=== PATIENT | female | born 1945 | race Caucasian/White ===

== ENCOUNTER 2019-12-14 09:43 | Outpatient (CLI) | payer MEDICARE, OTHER, SELFPAY ==
--- NOTE | 2019-12-14 09:49 | MM_ITS ---
WS: [id number] Bilateral diagnostic digital mammogram, 12/14/2019 Clinical Data: HX OF BREAST CA Comparison: 11/02/2018, 10/14/2017, 10/07/2016, 10/01/2015, 09/24/2014, 09/20/2013, 09/18/2012, 08/10/2011, 07/13, 07/30/2009, 07/01/2008, 07/13/2007, 07/03/2007, 06/27/2006, 07/01/2005. Findings: The breasts are heterogeneously dense. No spiculated masses or clustered calcifications are seen. The re are no secondary signs of carcinoma. There are small vessel calcifications in the left breast. MM/[place] [id number] Impression: 1. Negative bilateral mammograms unchanged. 2. Recommendation annual mammograms. BIRADS: 1-Negative FOLLOW UP: 1 Year Follow-up The CAD lap checker was used.
== END 2019-12-14 09:44 | disposition home or self-care (01) ==
PROVIDERS: PCP Electrodiagnostic Medicine; Visit Provider Electrodiagnostic Medicine
DX: Z85.3 Personal history of malignant neoplasm of breast (principal)
CPT/HCPCS: 77066

== ENCOUNTER → 2020-12-01 12:55 | Outpatient (BNVA) | payer MEDICARE, SELFPAY | PROVIDERS: PCP Electrodiagnostic Medicine; Visit Provider Nurse Practitioner Family | DX: N30.90 Cystitis, unspecified without hematuria (principal) | CPT/HCPCS: 81003 ==

== ENCOUNTER 2021-03-16 09:41 | Outpatient (CLI) | payer MEDICARE, OTHER, SELFPAY ==
--- NOTE | 2021-03-16 09:49 | MM_ITS ---
WS: [id number] BILATERAL DIGITAL DIAGNOSTIC MAMMOGRAM MAMMOGRAPHY WITH CAD CLINICAL INFORMATION: HX OF BREAST CA\ COMPARISON: December 14, 2019 TECHNIQUE: Bilateral CC, MLO, and ML views. FINDINGS: The breasts are composed of heterogeneous fibroglandular density, which can limit the detection of sm all underlying mass lesions. Vascular calcification. Dystrophic calcifications left breast are unchan ged. No suspicious focal mass, asymmetry, calcifications, or architectural distortion. No evidence of hattie gnancy. MM/[place] [id number] IMPRESSION: BI-RADS: 2-Benign FOLLOW UP: 1 Year Follow-up Recommend return to annual diagnostic mammography.
== END 2021-03-16 09:42 | disposition home or self-care (01) ==
LOC: RADSHAW 09:46
PROVIDERS: PCP Electrodiagnostic Medicine; Visit Provider Electrodiagnostic Medicine
DX: Z85.3 Personal history of malignant neoplasm of breast (principal)
CPT/HCPCS: 77066

== ENCOUNTER 2021-07-24 08:27 | Outpatient (RCR) | payer MEDICARE, OTHER, SELFPAY | END 2021-08-11 23:59 | disposition home or self-care (01) | LOC: SPT 08:27 | PROVIDERS: PCP Electrodiagnostic Medicine; Referring Provider Electrodiagnostic Medicine; Visit Provider Electrodiagnostic Medicine | DX: M54.9 Dorsalgia, unspecified (principal) | CPT/HCPCS: 97110; 97161 ==

== ENCOUNTER 2021-08-12 06:00 | Outpatient (RCR) | payer MEDICARE, OTHER, SELFPAY | END 2021-09-10 23:59 | disposition home or self-care (01) | LOC: SPT 06:00 | PROVIDERS: PCP Electrodiagnostic Medicine; Referring Provider Electrodiagnostic Medicine; Visit Provider Electrodiagnostic Medicine | DX: M54.6 Pain in thoracic spine (principal) | CPT/HCPCS: 97110 ==

== ENCOUNTER → 2021-11-24 10:27 | Outpatient (BNVA) | payer MEDICARE, OTHER, SELFPAY | PROVIDERS: PCP Electrodiagnostic Medicine; Visit Provider Urology | DX: N39.0 Urinary tract infection, site not specified (principal) | CPT/HCPCS: 99213 ==

== ENCOUNTER → 2021-12-07 10:45 | Outpatient (BNVA) | payer MEDICARE, OTHER, SELFPAY | PROVIDERS: PCP Electrodiagnostic Medicine; Visit Provider Urology | DX: N39.0 Urinary tract infection, site not specified (principal) | CPT/HCPCS: 81003 ==

== ENCOUNTER 2022-03-30 08:16 | Outpatient (CLI) | payer MEDICARE, SELFPAY ==
--- NOTE | 2022-03-30 08:33 | MM_ITS ---
WS: [id number] BILATERAL SCREENING DIGITAL TOMOSYNTHESIS MAMMOGRAM WITH CAD HISTORY: HX OF BREAST CA COMPARISON: 03/16/2021, 12/14/2019 and 10/14/2017 Bilateral CC and MLO views with tomosynthesis and synthetic mammography submitted. Computer aided det ection analyzed. Breast composition: The breasts are heterogeneously dense, which may obscure small masses. No suspici ous masses, microcalcifications or architectural distortion. Benign coarse calcification 12:00 LEFT b reast and vascular calcifications. MM/[place] [id number] IMPRESSION: BI-RADS: 2-Benign FOLLOW UP: 1 Year Follow-up
== END 2022-03-30 08:17 | disposition home or self-care (01) ==
PROVIDERS: PCP Electrodiagnostic Medicine; Visit Provider Electrodiagnostic Medicine
DX: Z85.3 Personal history of malignant neoplasm of breast (principal)
CPT/HCPCS: 77062; G0279

== ENCOUNTER 2023-04-20 10:07 | Outpatient (CLI) | payer MEDICARE, SELFPAY ==
--- NOTE | 2023-04-20 10:15 | MM_ITS ---
WS: [id number] DIAGNOSTIC BILATERAL DIGITAL BREAST TOMOSYNTHESIS MAMMOGRAPHY WITH CAD HISTORY: HISTORY OF BREAST CANCER COMPARISON: 03/30/2022, 03/16/2021 and 12/14/2019 TECHNIQUE: Bilateral craniocaudad, mediolateral oblique, and mediolateral views are submitted with to mosynthraya and SM. Computer aided detection utilized. Breast composition: The breasts are heterogeneously dense, which may obscure small masses. Stable are a of architectural distortion in the posterior lateral and slightly superior LEFT breast. There is an associated dystrophic calcification. There is no associated mass. This does appear to be at the site of the prior lumpectomy. IMPRESSION: MM/[place] [id number] BI-RADS: 2-Benign FOLLOW UP: 1 Year Follow-up
== END 2023-04-20 10:08 | disposition home or self-care (01) ==
LOC: RAD 10:09
PROVIDERS: PCP Electrodiagnostic Medicine; Visit Provider Electrodiagnostic Medicine
DX: Z85.3 Personal history of malignant neoplasm of breast (principal); R92.333 Mammographic heterogeneous density, bilateral breasts; N64.89 Other specified disorders of breast; R92.1 Mammographic calcification found on diagnostic imaging of breast
CPT/HCPCS: 77062; G0279

== ENCOUNTER → 2023-08-10 11:30 | Outpatient (BNVA) | payer MEDICARE, SELFPAY | PROVIDERS: PCP Electrodiagnostic Medicine; Referring Provider Electrodiagnostic Medicine; Visit Provider Internal Medicine | DX: E05.90 Thyrotoxicosis, unspecified without thyrotoxic crisis or storm (principal); E04.2 Nontoxic multinodular goiter | CPT/HCPCS: 99204 ==

== ENCOUNTER 2024-05-08 10:50 | Outpatient (CLI) | payer MEDICARE, SELFPAY ==
--- NOTE | 2024-05-08 11:00 | MM_ITS ---
WS: [id number] DIAGNOSTIC BILATERAL DIGITAL BREAST TOMOSYNTHESIS MAMMOGRAPHY WITH CAD HISTORY: SCREENING COMPARISON: 04/20/2023, 03/30/2022, 11/02/2018 TECHNIQUE: Bilateral craniocaudad, mediolateral oblique, and mediolateral views are submitted with tomosynthesis and SM. Computer aided detection utilized. Breast composition: The breasts are heterogeneously dense, which may obscure small masses. Bilateral vascular calcifications. Asymmetric soft tissue is similar to prior studies. Dystrophic calcification upper outer quadrant of the LEFT breast at the site of prior biopsy and lumpectomy. No new mass or suspicious grouping of calcifications. MM/MM diag BI tomosynthesis [id number] IMPRESSION: BI-RADS: 2 - Benign FOLLOW UP: 1 Year Follow-up
== END 2024-05-08 10:51 | disposition home or self-care (01) ==
LOC: RAD 10:52
PROVIDERS: PCP Electrodiagnostic Medicine; Visit Provider Electrodiagnostic Medicine
DX: Z85.3 Personal history of malignant neoplasm of breast (principal); R92.333 Mammographic heterogeneous density, bilateral breasts; R92.1 Mammographic calcification found on diagnostic imaging of breast; N64.89 Other specified disorders of breast
CPT/HCPCS: 77062; G0279

== ENCOUNTER 2024-11-05 09:03 | Outpatient (CLI) | payer MEDICARE, SELFPAY ==
--- NOTE | 2024-11-05 09:14 | MM_ITS ---
WS: [id number] DIAGNOSTIC RIGHT DIGITAL BREAST TOMOSYNTHESIS MAMMOGRAPHY WITH CAD RIGHT breast ultrasound, limited HISTORY: MASS OF R BREAST COMPARISON: 05/08/2024, 04/20/2023, 03/30/2022, 03/16/2021 Breast composition: The breasts are heterogeneously dense, which may obscure small masses. Palpable marker is placed near the 6:00 axis of the RIGHT breast. There is an area of slight increased density but there is no distortion. No discrete margins are identified. Mild asymmetry measuring approximately 2.1 x 1.9 x 1.9 cm which will be further evaluated by ultrasound. New finding since the prior exam. Breasts are dense which may obscure masses. No suspicious grouping of calcifications. RIGHT breast ultrasound, limited. Hypoechoic, irregular, angular mass with shadowing corresponds to the palpable abnormality. This mass is at 6:00, 1 cm from the nipple and measures 1.4 x 1.5 x 1.9 cm. Mild increased vascularity. MM/MM diag RT tomosynthesis [id number] IMPRESSION: BI-RADS: 5 - Highly suggestive of Malignancy FOLLOW UP: Biopsy Recommended Ultrasound-guided biopsy recommended RIGHT breast mass.
== END 2024-11-05 09:04 | disposition home or self-care (01) ==
PROVIDERS: PCP Electrodiagnostic Medicine; Visit Provider Electrodiagnostic Medicine
DX: N63.15 Unspecified lump in the right breast, overlapping quadrants (principal); R92.333 Mammographic heterogeneous density, bilateral breasts
CPT/HCPCS: 76642; 77061; G0279

== ENCOUNTER 2024-11-14 10:26 | Outpatient (CLI) | payer MEDICARE, SELFPAY ==
--- NOTE | 2024-11-14 10:35 | US_ITS ---
WS: [id number] ULTRASOUND-GUIDED RIGHT BREAST BIOPSY CLINICAL INFORMATION: ABNORMAL MAMMOGRAM FINDINGS: The procedure including risks, benefits, and complications were discussed with the patient who agreed to proceed. Using sterile technique patient was prepped and draped in the usual sterile fashion. After 1% lidocaine utilizing real-time ultrasound guidance 5 14-gauge cores were obtained of the RIGHT breast lesion at the 6 o'clock position 1 cm from the nipple. Subsequently a titanium clip was placed in the biopsy cavity. No immediate complications. US/[place] [id number] IMPRESSION: 1. Uncomplicated ultrasound-guided RIGHT breast biopsy. 2. The pathology demonstrates invasive mammary carcinoma of no special type du ctal is favored. High nuclear grade. 3. Breast prognostic profile will be reported separately by pathology. 4. Recommend breast surgery consultation. DENSITY: The breasts are heterogeneously dense, which may obscure small masses. BI-RADS: 6 - Known Biopsy - Proven Malignancy FOLLOW UP: Surgical Biopsy Recommended RECOMMEND BREAST SURGERY CONSULTATION
[2024-11-20 13:27] LABS: Breast Profile ER,PR,HER2,Ki-6 See Report
[2024-11-21 13:23] LABS: PD-L1 (Clone 22C3) by IHC BBPL See Report
== END 2024-11-14 10:27 | disposition home or self-care (01) ==
LOC: RAD 10:27
PROVIDERS: PCP Electrodiagnostic Medicine; Visit Provider Electrodiagnostic Medicine
DX: C50.811 Malignant neoplasm of overlapping sites of right female breast (principal)
CPT/HCPCS: 19083; 88305; 88341; 88342; 88361; 88374

== ENCOUNTER → 2024-11-19 13:53 | Outpatient (BNVA) | payer MEDICARE, SELFPAY | PROVIDERS: PCP Electrodiagnostic Medicine; Visit Provider Student in an Organized Health Care Education/Training Program | DX: C50.911 Malignant neoplasm of unspecified site of right female breast (principal); R03.0 Elevated blood-pressure reading, without diagnosis of hypertension | CPT/HCPCS: 99204 ==

== ENCOUNTER → 2024-12-03 14:45 | Outpatient (BNVA) | payer MEDICARE, SELFPAY | PROVIDERS: PCP Electrodiagnostic Medicine; Visit Provider Student in an Organized Health Care Education/Training Program | DX: Z85.3 Personal history of malignant neoplasm of breast (principal) | CPT/HCPCS: 99214 ==

== ENCOUNTER 2024-12-05 08:45 | Day surgery (SDC) | payer MEDICARE, SELFPAY ==
[2024-12-05] VITALS (9 sets, daily range): BP systolic 88–117; BP diastolic 43–75; PULSE 54–66; RESP 10–24; TEMP 35.7–36.3; O2SAT 94–100; BMI 21.4
--- NOTE | 2024-12-05 08:52 | SC_ITS ---
WS: [id number] Exam: C-arm FL for CVA [id number] Date/Time of Exam: 12/05/2024 8:52 AM Reason For Exam: port placement DLP: Single AP C-arm image of the upper chest is submitted. The image depicts a LEFT subclavian port placement with the tip of the port ending in the lower one third of the SVC. No other significant finding on this limited study.
--- NOTE | 2024-12-05 09:07 | W.PM.OPSUD ---
Surgery/Procedure H&P Update DATE OF PROCEDURE: December 05, 2024 DATE H&P PERFORMED: 12/03/24 H&P UPDATE INFORMATION: I have reviewed H&P completed within last 30 days, I have examined patient prior to procedure, No changes to prior documentation and Risks and benefits of the procedure reviewed PLANNED PROCEDURE: Operation Date: 12/05/24 10:50 Proposed Procedures p Port a Cath Insertion [id number] C50.919(Not Applicable) - Son Gerard MD
--- NOTE | 2024-12-05 09:23 | ANES.PREANE2 ---
Pre-Anesthetic Assessment Height/Weight: Height 1.68 m Temp Pulse Resp BP Pulse Ox O2 Del Method 96.8 F L 66 18 116/75 98 Room Air 12/05/24 09:13 12/05/24 09:13 12/05/24 09:13 12/05/24 09:13 12/05/24 09:13 12/05/24 09:13 Operation Date: 12/05/24 10:50 Proposed Procedures p Port a Cath Insertion [id number] C50.919(Not Applicable) - Son Gerard MD Familial anesthetic complications: None Was Beta Ty taken within 24 hours: N/A Was Clonidine taken within 24 hours: N/A Last intake: Intake Last Liquid Date 12/04/24 Last Liquid Time 22:00 Last Solid Date 12/04/24 Last Solid Time 22:00 Social No alcohol and No tobacco Exam alert, oriented x 3, clear to auscultation bilaterally and regular rate & rhythm Airway Mallampati: Class I GI Gastroesophageal Reflux Disease Metabolic Thyroid Disease Anesthetic Plan ASA status: 2 Anesthesia: MAC Risk of > 500 ml blood loss (7ml/kg in children): No Medications/Allergies Home Medications ?Medication ?Instructions ?Recorded ?Confirmed ?Last Taken ?Type levetiracetam 250 mg tablet 250 mg PO BEDTIME 12/01/20 12/04/24 12/04/24 History ([place]) methimazole 5 mg tablet 2.5 mg PO DAILY 12/01/20 12/04/24 12/04/24 History cholecalciferol (vitamin D3) 50 50 mcg PO DAILY 11/19/24 12/04/24 12/04/24 History mcg (2,000 unit) capsule famotidine 10 mg tablet (Pepcid AC) 10 mg PO DAILY 11/19/24 12/04/24 12/04/24 History magnesium 250 mg tablet 250 mg PO DAILY 11/19/24 12/04/24 12/04/24 History vit C 250 mg-vit E 90 mg-zinc 40 1 tab PO BID 11/19/24 12/04/24 12/04/24 History mg-copper 1 [id number] capsule ([facility] AREDS-2) vitamin B complex 1 cap PO DAILY 11/19/24 12/04/24 12/04/24 History Allergies Allergy/AdvReac Type Severity Reaction Status Date / Time metronidazole (From Flagyl) Allergy Unknown Verified 12/03/24 14:47 rosuvastatin (From Crestor) Allergy Unknown Verified 12/03/24 14:47 simvastatin Allergy Unknown Verified 12/03/24 14:47 Sulfa (Sulfonamide Allergy Unknown Verified 12/03/24 14:47 Antibiotics) [facility] Anesthesia Medical History Recurrent UTI Surgical History H/O eye surgery eye surgically removed with replacement made Hx of cholecystectomy S/P lumpectomy, left breast H/O: hysterectomy H/O thyroidectomy H/O adenoidectomy Hx of tonsillectomy Family History Father , at age 84 Aneurysm Mother , at age 92 Heart disease Cancer breast Social History Smoking and tobacco/nicotine status: never used tobacco/nicotine Alcohol intake: never Marital status: Current occupational status: retired
[2024-12-05] MEDS: ceFAZolin 2,000 mg SDV 2000 MG IVP (10:00)
[2024-12-05] MEDS: lidocaine-epi 1% 20 mL INJ INJECTION (10:13)
[2024-12-05] MEDS: BUPivacaine 0.25% INJ 10 mL INJECTION (10:13)
[2024-12-05] MEDS: heparin, porcine 1,000 unit/mL INJ 10 mL 10000 UNIT INJECTION (10:13)
--- NOTE | 2024-12-05 10:31 | PM.OP ---
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 Discussed risk and benefits and patient agreed to proceed with Port-A-Cath placement. Procedure: Patient was brought into the operating room and a timeout was carried out. Procedure was done under MAC. Patient was placed supine with the arms tucked and in Trendelenburg. Patient was prepped and draped in the usual sterile fashion. Using ultrasound guidance the left internal jugular vein was accessed. A guidewire was then placed down to the atriocaval junction using fluoroscopy. The finder needle was removed and the guidewire was secured. I then turned my attention to creating a pocket over the right chest. Make sure to locally infiltrated using plain lidocaine and bupivacaine at the site of the pocket and throughout the tunnel site. I confirmed adequate hemostasis at the pocket. I then proceeded to place the port that was already preassembled and flushed with heparinized saline and the chest pocket. I tunneled the catheter from the chest to the neck at the site where I accessed the internal jugular vein. I measured and adjusted the length of the catheter so it would reach the atrial caval junction. At this point, I used a dilator to dilate the tract into the internal jugular vein using fluoroscopy. I removed the guidewire and proceeded to thread the central venous catheter through the introducer. In the process, I removed the sheath as a completely pushed the catheter into the internal jugular vein. I then confirmed adequate placement of the catheter by performing intraoperative interpretation of fluoroscopy. The tip of the catheter was confirmed to be placed in the atriocaval junction. There were no kinks noted throughout the trajectory of the catheter. I then proceeded to test the port and was satisfied with its functionality. I proceeded to flushed the catheter without any issues. I then hep-locked the port. Skin was closed using deep dermal 3-0 Vicryl, subcuticular 4-0 Monocryl, and Dermabond. Patient was then transferred to PACU without any complications.
--- NOTE | 2024-12-05 12:00 | ANE.PACU2 ---
Inpatient post-anesthesia follow up: Airway intact: Yes Vital signs: Temperature 96.2 F Pulse Rate 57 Respiratory Rate 18 Blood Pressure 113/60 Pulse Oximetry 100 Oxygen Delivery Me thod Room Air Oxygen Flow Rate Fraction of Inspir ed Oxygen Hydration adequate: Yes Nausea and vomiting: No Pain level: 1 Mental status: Baseline
--- NOTE | 2024-12-05 12:14 | PC.NURSE ---
Incision site was clean and dry. No bleeding or drainage observed.
== END 2024-12-05 12:00 | disposition home or self-care (01) ==
PROVIDERS: PCP Electrodiagnostic Medicine; Visit Provider Student in an Organized Health Care Education/Training Program
PROC: (CPT 36561; principal; 2024-12-05 10:50)
DX: C50.919 Malignant neoplasm of unspecified site of unspecified female breast (principal); K21.9 Gastro-esophageal reflux disease without esophagitis; E07.9 Disorder of thyroid, unspecified
CPT/HCPCS: 36561; 76000; 77001; C1750; C1788; J0690; J1644; J2704; J3010; J3490; J7030; J9999

== ENCOUNTER 2024-12-10 11:45 | Oncology outpatient (recurring) (ONCR) | payer MEDICARE, SELFPAY ==
--- NOTE | 2024-11-30 15:30 | PETR_ITS ---
PROCEDURE INFORMATION: Exam: PET/CT Skull Base to Mid-thigh Exam date and time: 11/30/2024 4:43 PM Age: 79 years old Clinical indication: Condition or disease; Primary cancer: Breast cancer LABS AND CLINICAL REPORTS: Glucose: 97 mg/dl Treatment strategy for malignancy (PET staging): Initial Staging (PI) TECHNIQUE: Imaging protocol: Following at least four-hour fasting and following the injection of radiopharmaceutical, low dose CT images were obtained. Then, PET images were obtained. Attenuation corrected images were constructed using the CT scan. Fused images of PET and CT were reviewed. The standardized uptake values (SUV) reported below are maximum values within a region of interest, expressed in gm/ml. Exam includes orbital meatal line to mid-thigh. Radiopharmaceutical: 9.81 mCi F-18 FDG (Fluorodeoxyglucose), IV. Injection site: LAC COMPARISON: [place] [id number] 11/14/2024 10:57 AM, thyroid ultrasound report 06/23/2023 FINDINGS: Brain: Visualized brain has normal physiologic uptake. Orbits: There are postoperative changes involving the right globe without elevated uptake. Paranasal sinuses: Non radiotracer avid mucosal thickening is noted in the frontal, ethmoid and bilateral maxillary sinuses consistent with chronic sinusitis. Pharynx: Asymmetric uptake in the region of the adenoidal tissue is noted in the midline to the right of midline, SUV max 16.5 on PET image 19. Slight asymmetric prominence of adenoidal tissue in this region is noted without a well-defined mass.. Larynx: No abnormal uptake. Thyroid: There is moderate lobulated prominence of the thyroid gland containing several nodules, for example measuring 1.4 cm in diameter on series 202, image 55. Lungs, pleura and trachea: No abnormal uptake. A left lower lobe calcified granuloma is present. Mild dependent streaky density in the lungs is consistent with atelectasis or scarring. Heart: Normal physiologic uptake. Mediastinal space: No abnormal uptake. Liver: No abnormal uptake. Low-density lesions in the liver are not radiotracer avid likely related to benign cysts or hemangiomas, for example measuring 1.3 cm on series 202, image 124. Gallbladder and biliary ducts: No abnormal uptake. Cholecystectomy surgical clips are identified. Pancreas: No abnormal uptake. Spleen: No abnormal uptake. Adrenal glands: No abnormal uptake. Kidneys and ureters: Normal physiologic uptake. Nonobstructing right nephrolithiasis. No hydronephrosis. Stomach and bowel: No abnormal uptake. Scattered colonic diverticula are present. Urinary bladder: There is a non radiotracer avid region of soft tissue density in the urinary bladder at the right ureterovesical junction measuring 2.1 cm in diameter in the axial plane on series 202, image 229. Reproductive: The uterus is not identified, likely surgically absent. Vasculature: No abnormal uptake. Multifocal regions of atherosclerotic calcification are identified. Lymph nodes: A radiotracer avid level 2 lymph node deep to the right sternocleidomastoid muscle in the proximal neck is present, SUV max 6.5 measuring 0.4 cm in short axis on CT series 202, image 28. Radiotracer avid left-sided level 2 lymph nodes are also identified, SUV max 3.1 on image 31 measuring up to 5 mm in short axis. Several radiotracer avid bilateral hilar lymph nodes are present. Right hilar uptake demonstrates an SUV max 10.5 on image 81, and left hilar uptake demonstrates an SUV max 7.6 on image 86. No well-defined lymph nodes in these regions are identified on the noncontrast CT images. Skeleton: There is uptake along the posterior right glenohumeral joint capsule superiorly, likely inflammatory, SUV max 6.3 on image 51. A subtle focus of uptake in the sternal body on the right is noted on image 99, SUV max 2.9. No definite correlating lesion is noted in this location on the CT images.The bones appear demineralized. Degenerative changes in the spine are present. Soft tissues: A radiotracer avid lesion within the mid to inferior aspect of the right breast is present, SUV max 17.2 on image 102 measuring 2.4 x 2.2 cm and containing a biopsy clip. METRICS: Mediastinal blood pool: SUV max 2.5, SUV mean 2.4. Liver uptake: SUV max 3.1, SUV mean 2.6 PET/PET skull to thigh INIT [id number] IMPRESSION: 1. A radiotracer avid right breast mass is compatible with biopsy-proven malignancy. 2. Asymmetric uptake in the expected location of the adenoidal tissue on the right is present. This appearance can be inflammatory or infectious in etiology. A malignant etiology is not excluded. 3. Radiotracer avid bilateral cervical and hilar lymph nodes are present concerning for possible metastases. 4. A small focus of mild uptake in the sternal body on the right is noted without a definite correlating lesion on the CT images. This uptake may be physiologic in nature. A metastatic lesion is not entirely excluded. 5. An enlarged multinodular thyroid gland is noted without elevated uptake, likely benign. 6. A masslike filling defect in the urinary bladder is present centered at the right ureterovesical junction without elevated uptake. This does not appear to result in ureteral obstruction. Lack of uptake favors a benign etiology, however, assessment of the urinary bladder can be limited by PET-CT. 7. Additional nonurgent findings as detailed above.
[2024-12-10 12:33] LABS: Hematocrit 38.2 % (36-47); Hemoglobin 12.10 g/dL (11.27-16.99); Mean Corpuscular HGB Conc 31.7 g/dL (30-55); Mean Corpuscular Hemoglobin 25.4 pg (27-33); Mean Corpuscular Volume 80.1 fl (85-98); Nucleated Red Blood Cells % 0 %; Platelet Count 247 10^3/cmm (157-399); Red Blood Count 4.77 10^6/uL (3.85-5.65); White Blood Count 7.11 10^3/uL (3.29-11.43)
[2024-12-10 12:50] LABS: Alanine Aminotransferase 7 U/L (0-33); Albumin Level 3.9 g/dL (3.5-5.2); Alkaline Phosphatase 109 U/L (35-105); Anion Gap 13.4 (5-19); Aspartate Amino Transferase 26 U/L (0-32); Blood Urea Nitrogen 15 mg/dL (8-23); CA 15-3 25.6 U/mL (0-25); Calcium 9.1 mg/dL (8.5-10.5); Carbon Dioxide 27 mmol/L (22-29); Chloride 106 mmol/L (98-107); Creatinine Clr Calc Pharmacy 53.8330; Globulin 3.4 g/dL (1.3-4.6); Glucose 92 mg/dL (65-115); Osmolality Calculated 294 mOsm/kg (285-295); Potassium 4.4 mmol/L (3.5-5.1); Sodium 142 mmol/L (136-145); Total Protein 7.3 g/dL (6.6-8.7)
== END 2024-12-11 23:59 | disposition home or self-care (01) ==
PROVIDERS: Nurse Practitioner Family; PCP Electrodiagnostic Medicine; Visit Provider Internal Medicine Medical Oncology
DX: C50.919 Malignant neoplasm of unspecified site of unspecified female breast; Z53.9 Procedure and treatment not carried out, unspecified reason
CPT/HCPCS: 36415; 78815; 80053; 85025; 86300; 99205; A9552

== ENCOUNTER → 2024-12-17 11:15 | Outpatient (BNVA) | payer MEDICARE, SELFPAY | PROVIDERS: PCP Electrodiagnostic Medicine; Visit Provider Student in an Organized Health Care Education/Training Program | DX: Z98.890 Other specified postprocedural states (principal) | CPT/HCPCS: 99214 ==

== ENCOUNTER 2024-12-24 08:54 | Outpatient (CLI) | payer MEDICARE, SELFPAY ==
[2024-12-24] VITALS (10 sets, daily range): BP systolic 126–144; BP diastolic 55–71; PULSE 65–82; RESP 14–18; TEMP 36.2; O2SAT 95–99; BMI 21.3
--- NOTE | 2024-12-24 09:38 | US_ITS ---
WS: [id number] ULTRASOUND-GUIDED RIGHT BREAST NEEDLE LOCALIZATION CLINICAL INFORMATION: Breast lumpectomy FINDINGS: The procedure including risks, benefits, and complications were discussed with the patient who agreed to proceed. Using sterile technique patient was prepped and draped in the usual sterile fashion. After 1% lidocaine, utilizing real-time ultrasound guidance, a 7 cm Kopan's needle was advanced into the RIGHT breast lesion at the 6 o'clock position 1 cm from the nipple. Wire was deployed. No immediate complications. Ultrasound of the surgical specimen demonstrates gross total resection of the lesion with intact wire. US/[place] [id number] IMPRESSION: 1. Uncomplicated ultrasound-guided RIGHT breast needle localization 2. Gross total resection of the lesion. 3. The pathology demonstrates invasive mammary carcinoma high nuclear grade. P osterior deep surgical margin positive for invasive ductal carcinoma. See patho logy report for further detail. 4. Benign RIGHT axillary sentinel lymph node. 5. Follow-up with breast surgery and oncology per recommendations DENSITY: The breasts are heterogeneously dense, which may obscure small masses. BI-RADS: 6 - Known Biopsy - Proven Malignancy FOLLOW UP: See Report Follow-up with breast surgery and oncology per recommendations
--- NOTE | 2024-12-24 11:04 | PC.NURSE ---
returned from us/nuc med.
--- NOTE | 2024-12-24 11:33 | ANES.PREANE2 ---
Pre-Anesthetic Assessment Height/Weight: Height 1.68 m Weight 59.874 kg Temp Pulse Resp BP Pulse Ox O2 Del Method 97.2 F L 65 18 144/69 99 Room Air 12/24/24 09:40 12/24/24 09:40 12/24/24 09:40 12/24/24 09:40 12/24/24 09:40 12/24/24 09:40 Operation Date: 12/24/24 12:00 Proposed Procedures p RIGHT Breast Lumpectomy w/ Needle Localization(Right) - Son Gerard MD s Sentinal Lymph Node Biopsy With Needle Insertion of Radiological Correlation(Right) - Son Gerard MD s POSSIBLE Portacath Removal(Not Applicable) - Son Gerard MD s POSSIBLE Port a Cath Insertion(Not Applicable) - Son Gerard MD Familial anesthetic complications: None Was Beta Ty taken within 24 hours: N/A Was Clonidine taken within 24 hours: N/A Last intake: Intake Last Liquid Date 12/23/24 Last Liquid Time 21:00 Last Solid Date 12/23/24 Last Solid Time 21:00 Social No alcohol and No tobacco Exam alert, oriented x 3, clear to auscultation bilaterally and regular rate & rhythm Airway Mallampati: Class I Dentition: false GI Gastroesophageal Reflux Disease Metabolic Thyroid Disease Anesthetic Plan ASA status: 3 Anesthesia: General Risk of > 500 ml blood loss (7ml/kg in children): No Medications/Allergies Home Medications ?Medication ?Instructions ?Recorded ?Confirmed ?Last Taken ?Type levetiracetam 250 mg tablet 250 mg PO BEDTIME 12/01/20 12/20/24 12/23/24 History ([place]) methimazole 5 mg tablet 2.5 mg PO DAILY 12/01/20 12/20/24 12/24/24 07:00 History cholecalciferol (vitamin D3) 50 50 mcg PO DAILY 11/19/24 12/20/24 12/23/24 History mcg (2,000 unit) capsule famotidine 10 mg tablet (Pepcid AC) 10 mg PO DAILY 11/19/24 12/20/24 12/24/24 07:00 History magnesium 250 mg tablet 250 mg PO DAILY 11/19/24 12/20/24 12/23/24 History vit C 250 mg-vit E 90 mg-zinc 40 1 tab PO BID 11/19/24 12/20/24 12/23/24 History mg-copper 1 [id number]-lyabxu capsule ([facility] AREDS-2) vitamin B complex 1 cap PO DAILY 11/19/24 12/20/24 12/23/24 History Allergies Allergy/AdvReac Type Severity Reaction Status Date / Time metronidazole (From Flagyl) Allergy Unknown Verified 12/17/24 11:17 rosuvastatin (From Crestor) Allergy ADR-Muscle Verified 12/17/24 11:17 Pain simvastatin Allergy ADR-Muscle Verified 12/17/24 11:17 Pain Sulfa (Sulfonamide Allergy Unknown Verified 12/17/24 11:17 Antibiotics) Current Medications Generic Name Dose Route Start Last Admin Trade Name Freq PRN Reason Stop Dose Admin Sodium Chloride 1,000 mls @ 30 mls/hr 12/24/24 09:45 12/24/24 11:06 Sodium Chloride 0.9% IV 12/25/24 09:44 30 mls/hr .Q24H BERRY Administration PFSH Anesthesia Medical History Recurrent UTI Surgical History H/O eye surgery eye surgically removed with replacement made Hx of cholecystectomy S/P lumpectomy, left breast H/O: hysterectomy H/O thyroidectomy H/O adenoidectomy Hx of tonsillectomy Family History Father , at age 84 Aneurysm Mother , at age 92 Heart disease Cancer breast Social History Smoking and tobacco/nicotine status: never used tobacco/nicotine Alcohol intake: never Marital status: Current occupational status: retired
[2024-12-24] MEDS: isosulfan blue 10 mg/mL SDV 5mL 50 MG SUBCUT (12:05)
--- NOTE | 2024-12-24 12:07 | W.PM.OPSUD ---
Surgery/Procedure H&P Update DATE OF PROCEDURE: December 24, 2024 DATE H&P PERFORMED: 12/03/24 H&P UPDATE INFORMATION: I have reviewed H&P completed within last 30 days, I have examined patient prior to procedure, No changes to prior documentation and Risks and benefits of the procedure reviewed CHANGES TO PREVIOUS DOCUMENTATION: Blue dye injected underneath nipple 5cc in preop at 1207 PLANNED PROCEDURE: Operation Date: 12/24/24 12:00 Proposed Procedures p RIGHT Breast Lumpectomy w/ Needle Localization(Right) - Son Gerard MD s Sentinal Lymph Node Biopsy With Needle Insertion of Radiological Correlation(Right) - Son Gerard MD s POSSIBLE Portacath Removal(Not Applicable) - Son Gerard MD s POSSIBLE Port a Cath Insertion(Not Applicable) - Son Gerard MD
[2024-12-24] MEDS: ceFAZolin 2,000 mg SDV 2000 MG IVP (12:35)
--- NOTE | 2024-12-24 13:09 | SC_ITS ---
WS: [id number] C-arm FL for CVA [id number] REASON FOR EXAM: portacath check FINDINGS: Infusion port overlying the left chest. Infusion catheter with left IJ access with the tip at the junction of the innominate vein and superior vena cava. SC/C-arm FL for CVA [id number] IMPRESSION: Chest port and infusion catheter placement as above.
--- NOTE | 2024-12-24 13:30 | US_ITS ---
WS: [id number] ULTRASOUND-GUIDED RIGHT BREAST NEEDLE LOCALIZATION CLINICAL INFORMATION: Breast lumpectomy FINDINGS: The procedure including risks, benefits, and complications were discussed with the patient who agreed to proceed. Using sterile technique patient was prepped and draped in the usual sterile fashion. After 1% lidocaine, utilizing real-time ultrasound guidance, a 7 cm Kopan's needle was advanced into the RIGHT breast lesion at the 6 o'clock position 1 cm from the nipple. Wire was deployed. No immediate complications. Ultrasound of the surgical specimen demonstrates gross total resection of the lesion with intact wire. US/US breast surgical specimen IMPRESSION: 1. Uncomplicated ultrasound-guided RIGHT breast needle localization 2. Gross total resection of the lesion. 3. The pathology demonstrates invasive mammary carcinoma high nuclear grade. P osterior deep surgical margin positive for invasive ductal carcinoma. See patho logy report for further detail. 4. Benign RIGHT axillary sentinel lymph node. 5. Follow-up with breast surgery and oncology per recommendations DENSITY: The breasts are heterogeneously dense, which may obscure small masses. BI-RADS: 6 - Known Biopsy - Proven Malignancy FOLLOW UP: See Report Follow-up with breast surgery and oncology per recommendations
--- NOTE | 2024-12-24 13:52 | P.OP_ITS ---
Operative Report Date of procedure: December 24, 2024 Pre-op diagnosis: Right breast cancer Post-op diagnosis: same Post-op findings: Started with sentinel lymph node biopsy. Gamma probe counts of 20 at the skin. Gamma probe in vivo revealed 2 packs of lymph nodes the first with a count of 60, the second with a count of 20. These 2 pack of lymph nodes were blue and had a counts of 80 and 30 respectively ex vivo. No additional blue, hot, palpable lymph nodes left in axilla. Then proceeded with right breast lumpectomy. Marked specimen using 3-0 nylon long lateral, short superior. Took an additional medial margin. Radiology examined lumpectomy specimen and confirmed that there were no close margins. Tested port. Initially unable to draw blood. Fluoroscopy initially confirmed no kinks and adequate positioning of tip of catheter at atrial junction. Opened incision. Removed a deep dermal stitch which was causing kinking of the catheter. Tested port again and now was found to be functional. Able to draw blood and flush easily. Closed incision with 4-0 Monocryl. Tested port at the end of case and was found to be fully functional. Procedure done: Right breast lumpectomy, sentinel lymph node biopsy, repositioning of right Port-A-Cath. Implants: Old Port-A-Cath re-positioned. Specimens removed/disposition: Right breast lumpectomy, sentinel lymph node biopsy Pathology: Right breast lumpectomy, sentinel lymph node biopsy Surgeon: Son Gerard MD Bromination Equipment Operator: N/A Anesthesia: MAC Estimated blood loss (mL): 40 Complications: N/A Findings: Started with sentinel lymph node biopsy. Gamma probe counts of 20 at the skin. Gamma probe in vivo revealed 2 packs of lymph nodes the first with a count of 60, the second with a count of 20. These 2 pack of lymph nodes were blue and had a counts of 80 and 30 respectively ex vivo. No additional blue, hot, palpable lymph nodes left in axilla. Then proceeded with right breast lumpectomy. Marked specimen using 3-0 nylon long lateral, short superior. Took an additional medial margin. Radiology examined lumpectomy specimen and confirmed that there were no close margins. Tested port. Initially unable to draw blood. Fluoroscopy initially confirmed no kinks and adequate positioning of tip of catheter at atrial junction. Opened incision. Removed a deep dermal stitch which was causing kinking of the catheter. Tested port again and now was found to be functional. Able to draw blood and flush easily. Closed incision with 4-0 Monocryl. Tested port at the end of case and was found to be fully functional. Condition: stable Disposition: same day Brief History: 79-year-old female who presented with right breast cancer. Discussed risk and benefits and patient agreed to proceed with right breast lumpectomy, sentinel lymph node biopsy, possible Port-A-Cath placement. Procedure: The wire localization of the left breast mammographic abnormality was performed by the radiologist under ultrasound guidance prior to bringing patient to the OR. A technetium sulfur colloid was also injected by the radiologist in the periareolar area of the left breast prior to bringing patient to OR. I injected 5cc of 1%lymphazurin blue in the retroareolar breast in PACU. The right breast and axilla was prepped and draped in the usual sterile fashion as well as the left chest and neck. MAC was induced. Prophylactic antibiotics administered. The sentinel lymph node biopsy was performed first. A 2 cm incision was made in the right axilla at the edge of the hairline (brianne counter counts 20 at skin level). The subcutaneous tissue and clavipectoral fascia was divided with electrocautery and gentle dissection revealed lymphatics with stained lymph nodes. Using electrocautery, the lymph nodes that were hot, blue, and palpable were dissected free in a single pack. Gamma probe in vivo revealed 2 packs of lymph nodes the first with a count of 60, the second with a count of 20. These 2 pack of lymph nodes were blue and had a counts of 80 and 30 respectively ex- vivo. No additional blue, hot, palpable lymph nodes left in axilla. The clavipectoral and subcutaneous tissue was approximated using running 3-0 Vicryl suture and skin was closed using running subcuticular 4-0 Monocryl suture and Dermabond. I then turned my attention to performing the right breast lumpectomy. A periareolar curvilinear incision was carried out over the lesion. Subcutaneous tissue was divided and skin flaps were raised superiorly and inferiorly. Using electrocautery, the wire along with the breast tissue containing mammographic abnormality was dissected free from the surrounding tissue. Using 3-0 silk suture the specimen was marked, short stitch was placed superiorly and a long stitch was placed laterally. An additional medial margin was taken and sent to radiology with the lumpectomy specimen. The wound was irrigated with sterile water, hemostasis ensured with electrocautery and several medium clips. Multiple anchor sutures performed using 2-0 vicryl. Subcutaneous tissues approximated using 3-0 running Vicryl suture and skin was closed using running subcuticular 4-0 Monocryl sutures and Dermabond. Fluffs were used for pressure dressing. A sports bra was applied. Patient was transferred to recovery room and stable condition. The lumpectomy specimens were sent to mammography to obtain radiological confirmation of complete excision of the mammographic abnormality. No close margins identified. The patient was transferred to PACU without any complications.
[2024-12-24] MEDS: BUPivacaine 0.25% INJ 30 mL INJECTION (13:53)
[2024-12-24] MEDS: lidocaine-epi 1% PF 1:200,000 30 mL SDV INJECTION (13:54)
[2024-12-24] MEDS: heparin, porcine 1,000 unit/mL INJ 10 mL 10000 UNIT INJECTION (14:59)
[2024-12-24] MEDS: oxyCODONE 5 mg IR Tab/Cap PO (15:08)
--- NOTE | 2024-12-24 15:25 | ANE.PACU2 ---
Inpatient post-anesthesia follow up: Airway intact: Yes Vital signs: Temperature 97.2 F Pulse Rate 68 Respiratory Rate 18 Blood Pressure 128/60 Pulse Oximetry 98 Oxygen Delivery Me thod Room Air Oxygen Flow Rate Fraction of Inspir ed Oxygen Hydration adequate: Yes Nausea and vomiting: No Pain level: 1 Mental status: Baseline
== END 2024-12-24 15:25 | disposition home or self-care (01) ==
PROVIDERS: PCP Electrodiagnostic Medicine; Visit Provider Student in an Organized Health Care Education/Training Program
PROC: (CPT 19120; principal; 2024-12-24 12:00)
DX: C50.911 Malignant neoplasm of unspecified site of right female breast (principal); D76.3 Other histiocytosis syndromes; K21.9 Gastro-esophageal reflux disease without esophagitis; E07.9 Disorder of thyroid, unspecified; Z80.3 Family history of malignant neoplasm of breast
CPT/HCPCS: 19285; 38792; 77001; 88307; A9520; C1788; J0690; J1100; J1644; J1885; J2405; J2704; J3010; J3490; J7030; J9999; Q9968

== ENCOUNTER 2025-01-10 09:23 | Oncology outpatient (recurring) (ONCR) | payer MEDICARE, SELFPAY ==
--- NOTE | 2025-01-10 10:10 | N.ONRAD NP_ITS ---
Radiation Oncology New Patient Visit Patient: Roxy Davila MR#: [id number] : 1945 Age: 79 Sex: Female Dictated by: Dr. Kristin Roche Date of Service: 01/10/2025 Referring Physician(s) : Dr. 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 Chief Complaint / History of Present Illness: Patient is an 79-year-old lady who palpated a mass in her right breast. This was biopsied and she has subsequently had breast conserving surgery. The primary lesion was 2 cm in size and was triple negative. The deep margin was positive. Her final stage was T1c N0, stage I. She is here today to discuss the radiation portion of her treatment. She has met with medical oncology and will be starting Taxotere and Cytoxan for 4 cycles in February. Her PET scan showed the mass in her breast as it was done prior to surgery, uptake in the right adenoid area that could be infectious or inflammatory, bilateral avid cervical and hilar nodes were also present, a small mild focus in the sternal body with no CT correlation, enlarged multinodular thyroid without uptake and a mass filling defect in the urinary bladder which was also without uptake. Current Medications: cholecalciferol (vitamin D3) 50 mcg PO DAILY PRN famotidine (Pepcid AC) 10 mg PO DAILY levetiracetam (Keppra) 250 mg PO BEDTIME magnesium 250 mg PO DAILY methimazole 2.5 mg PO DAILY oxycodone 5 mg PO BID PRN vit C,E-Ij-huzvg-lutein-zeaxan 250-90-40-1 mg ([facility] AREDS-2) 1 tab PO BID vitamin B complex 1 cap PO DAILY Allergies: metronidazole (From Flagyl) Allergy (Verified 12/17/24 11:17) Unknown rosuvastatin (From Crestor) Allergy (Verified 12/17/24 11:17) ADR-Muscle Pain simvastatin Allergy (Verified 12/17/24 11:17) ADR-Muscle Pain Sulfa (Sulfonamide Antibiotics) Allergy (Verified 12/17/24 11:17) Unknown Medical History: No history of collagen vascular disease. No previous radiation therapy. Recurrent UTI Surgical History: H/O eye surgery eye surgically removed with replacement made Hx of cholecystectomy S/P lumpectomy, left breast H/O: hysterectomy H/O thyroidectomy H/O adenoidectomy Hx of tonsillectomy Family History: Father , at age 84 Aneurysm Mother , at age 92 Heart disease Cancer Breast Social History: Smoking and tobacco/nicotine status: never used tobacco/nicotine Alcohol intake: never Marital status: Current occupational status: retired Current Complaints / Review of Systems: . Vital Signs: Performed on 01/10/2025 9:44 AM BMI - 21.564 kg/m2, Height - 66 in, Weight - 133.6 lbs, Temperature - 96.9 f, Pulse - 76 /min, Respiration - 16 /min, O2 Sat - 99 %, Pain - 0, Fatigue - 0 and BP - 131/ 85 mm(hg). Physical Exam: General: Patient is sitting comfortably in her chair. She is accompanied today by her HEENT: Normocephalic atraumatic. Pupils are equal, sclera clear, extraocular muscles intact Pulmonary: Respiratory rate is regular nonlabored Cardiovascular: Regular rate and rhythm Abdomen: Patient is quite thin with minimal adipose tissue Extremities: Without obvious edema or lymphedema Skin: Warm and dry Neurological: Alert and orient x 3. Gait and speech within normal limits Psych: Affect appropriate for current situation Performance Status: 100 Pathology: Lab: Imaging: See HPI Impression: Triple negative right-sided breast cancer stage I in a patient with a prior history of a left-sided breast cancer dating from 23 years ago status post breast conserving surgery with a positive deep margin Plan: I reviewed with her and her the sequence of events. We talked about her pathology. We also talked about the role of radiation in her case. We discussed that typically this would start after her chemotherapy. We reviewed the risks and side effects both acute and long-term. She is familiar with the simulation process and the daily treatment regimen. We discussed a 4-week course of treatment with a boost to the surgical bed because of the positive margin. At this point she will start her chemotherapy after Thanks[facility] and we will see her back when she is completed her 4 cycles. I have encouraged her to call if she should have any additional questions. Signed by: 01/10/2025 10:08:25 AM <<Signature on File>> Time spent with patient: 45 CPT Code: CPT Code:
== END 2025-01-11 23:59 | disposition home or self-care (01) ==
PROVIDERS: PCP Electrodiagnostic Medicine; Visit Provider Internal Medicine Medical Oncology
DX: Z53.9 Procedure and treatment not carried out, unspecified reason; C50.911 Malignant neoplasm of unspecified site of right female breast; Z92.3 Personal history of irradiation; R03.0 Elevated blood-pressure reading, without diagnosis of hypertension; Z95.828 Presence of other vascular implants and grafts
CPT/HCPCS: 99205; 99214

== ENCOUNTER 2025-03-12 09:00 | Oncology outpatient (recurring) (ONCR) | payer MEDICARE, SELFPAY ==
[2025-02-20 09:01] LABS: Hematocrit 36.8 % (36-47); Hemoglobin 11.90 g/dL (11.27-16.99); Mean Corpuscular HGB Conc 32.3 g/dL (30-55); Mean Corpuscular Hemoglobin 25.9 pg (27-33); Mean Corpuscular Volume 80.2 fl (85-98); Nucleated Red Blood Cells % 0 %; Platelet Count 212 10^3/cmm (157-399); Red Blood Count 4.59 10^6/uL (3.85-5.65); White Blood Count 12.88 10^3/uL (3.29-11.43)
[2025-02-20 09:39] LABS: Alanine Aminotransferase 7 U/L (0-33); Albumin Level 4.2 g/dL (3.5-5.2); Alkaline Phosphatase 109 U/L (35-105); Anion Gap 16.9 (5-19); Aspartate Amino Transferase 16 U/L (0-32); Blood Urea Nitrogen 19 mg/dL (8-23); Calcium 9.5 mg/dL (8.5-10.5); Carbon Dioxide 23 mmol/L (22-29); Chloride 104 mmol/L (98-107); Creatinine Clr Calc Pharmacy 52.3873; Globulin 3.1 g/dL (1.3-4.6); Glucose 222 mg/dL (65-115); Osmolality Calculated 299 mOsm/kg (285-295); Potassium 3.9 mmol/L (3.5-5.1); Sodium 140 mmol/L (136-145); Total Protein 7.3 g/dL (6.6-8.7)
[2025-02-20] MEDS: diphenhydrAMINE 50 mg/mL SDV 1mL 25 MG IVP (11:55)
[2025-02-20] MEDS: cyclophosphamide 1,000 MG in sodium chloride 0.9% 500 ML 500 MG IV (13:09)
[2025-02-20 15:52] VITALS: PULSE 52; TEMP 36.4; O2SAT 98
[2025-02-26] MEDS: alteplase 1 mg/mL SDV 2 mL 2 MG INTRACATH (07:42)
[2025-02-26 07:53] LABS: Hematocrit 35.6 % (36-47); Hemoglobin 11.20 g/dL (11.27-16.99); Mean Corpuscular HGB Conc 31.5 g/dL (30-55); Mean Corpuscular Hemoglobin 25.9 pg (27-33); Mean Corpuscular Volume 82.2 fl (85-98); Nucleated Red Blood Cells % 0 %; Platelet Count 120 10^3/cmm (157-399); Red Blood Count 4.33 10^6/uL (3.85-5.65); White Blood Count 1.32 10^3/uL (3.29-11.43)
[2025-02-26 08:14] LABS: Alanine Aminotransferase 10 U/L (0-33); Albumin Level 3.4 g/dL (3.5-5.2); Alkaline Phosphatase 101 U/L (35-105); Anion Gap 11.9 (5-19); Aspartate Amino Transferase 14 U/L (0-32); Blood Urea Nitrogen 13 mg/dL (8-23); Calcium 8.0 mg/dL (8.5-10.5); Carbon Dioxide 28 mmol/L (22-29); Chloride 103 mmol/L (98-107); Globulin 2.6 g/dL (1.3-4.6); Glucose 156 mg/dL (65-115); Osmolality Calculated 291 mOsm/kg (285-295); Potassium 3.9 mmol/L (3.5-5.1); Sodium 139 mmol/L (136-145); Total Protein 6.0 g/dL (6.6-8.7)
--- NOTE | 2025-02-26 09:07 | XRR_ITS ---
PROCEDURE INFORMATION: Exam: XR Abdomen Exam date and time: 02/26/2025 9:18 AM Age: 79 years old Clinical indication: Constipation; Abdominal pain; Generalized; Additional info: Constipation with abdominal pain, R/O blockage TECHNIQUE: Imaging protocol: Radiologic exam of the abdomen. Views: Frontal supine view of the abdomen. 1 View. COMPARISON: CR XR abdomen 1V* [id number] 04/05/2024 11:47 AM FINDINGS: Tubes, catheters and devices: Surgical clips overlie the upper right abdomen. Gastrointestinal tract: Normal. No bowel dilation. Intraperitoneal space: Syringe overlies the mid left abdomen. Bones/joints: Unremarkable. XR/XR abdomen 1V* [id number] IMPRESSION: Normal bowel-gas pattern.
[2025-03-05 11:15] LABS: Hematocrit 34.7 % (36-47); Hemoglobin 11.30 g/dL (11.27-16.99); Mean Corpuscular HGB Conc 32.6 g/dL (30-55); Mean Corpuscular Hemoglobin 25.9 pg (27-33); Mean Corpuscular Volume 79.4 fl (85-98); Nucleated Red Blood Cells % 0 %; Platelet Count 357 10^3/cmm (157-399); Red Blood Count 4.37 10^6/uL (3.85-5.65); White Blood Count 8.63 10^3/uL (3.29-11.43)
[2025-03-05 11:21] LABS: Alanine Aminotransferase 17 U/L (0-33); Albumin Level 3.2 g/dL (3.5-5.2); Alkaline Phosphatase 78 U/L (35-105); Aspartate Amino Transferase 26 U/L (0-32); Blood Urea Nitrogen 22 mg/dL (8-23); Calcium 8.2 mg/dL (8.5-10.5); Carbon Dioxide 24 mmol/L (22-29); Chloride 101 mmol/L (98-107); Globulin 2.9 g/dL (1.3-4.6); Glucose 131 mg/dL (65-115); Osmolality Calculated 291 mOsm/kg (285-295); Sodium 138 mmol/L (136-145); Total Protein 6.1 g/dL (6.6-8.7)
[2025-03-05 11:28] LABS: Anion Gap 16.3 (5-19); Potassium 3.3 mmol/L (3.5-5.1)
[2025-03-05 11:49] LABS: Slide Review Slide Review Perform
[2025-03-12 08:52] LABS: Hematocrit 33.1 % (36-47); Hemoglobin 10.70 g/dL (11.27-16.99); Mean Corpuscular HGB Conc 32.3 g/dL (30-55); Mean Corpuscular Hemoglobin 25.8 pg (27-33); Mean Corpuscular Volume 79.8 fl (85-98); Nucleated Red Blood Cells % 0 %; Platelet Count 542 10^3/cmm (157-399); Red Blood Count 4.15 10^6/uL (3.85-5.65); White Blood Count 16.04 10^3/uL (3.29-11.43)
[2025-03-12 09:12] LABS: Alanine Aminotransferase 13 U/L (0-33); Albumin Level 3.5 g/dL (3.5-5.2); Alkaline Phosphatase 69 U/L (35-105); Anion Gap 17.0 (5-19); Aspartate Amino Transferase 15 U/L (0-32); Blood Urea Nitrogen 18 mg/dL (8-23); Calcium 8.9 mg/dL (8.5-10.5); Carbon Dioxide 22 mmol/L (22-29); Chloride 104 mmol/L (98-107); Globulin 2.8 g/dL (1.3-4.6); Glucose 181 mg/dL (65-115); Osmolality Calculated 294 mOsm/kg (285-295); Potassium 4.0 mmol/L (3.5-5.1); Sodium 139 mmol/L (136-145); Total Protein 6.3 g/dL (6.6-8.7)
[2025-03-12] MEDS: diphenhydrAMINE 50 mg/mL SDV 1mL 25 MG IVP (11:10)
[2025-03-12] MEDS: cyclophosphamide 1,000 MG in sodium chloride 0.9% 500 ML 500 MG IV (11:56)
[2025-03-12 15:10] VITALS: BP 100/60; PULSE 60; RESP 17; TEMP 35.8; O2SAT 98
== END 2025-03-13 23:59 | disposition home or self-care (01) ==
PROVIDERS: Internal Medicine Medical Oncology; Nurse Practitioner; PCP Electrodiagnostic Medicine; Visit Provider Nurse Practitioner Family
DX: Z51.11 Encounter for antineoplastic chemotherapy; C50.911 Malignant neoplasm of unspecified site of right female breast; Z17.421 Hormone receptor negative with human epidermal growth factor receptor 2 negative status; D64.9 Anemia, unspecified; Z79.899 Other long term (current) drug therapy; Z79.52 Long term (current) use of systemic steroids; Z92.3 Personal history of irradiation; Z95.828 Presence of other vascular implants and grafts; Z53.9 Procedure and treatment not carried out, unspecified reason
CPT/HCPCS: 36593; 74018; 80053; 85025; 96375; 96413; 96415; 96417; 99214; 99215; J0185; J1100; J1200; J2469; J2997; J3490; J7040; J7050; J9075; J9171; J9999